=== PATIENT | male | born 1975 | race Caucasian/White ===

== ENCOUNTER 2019-07-19 10:25 | Observation (INO) | payer OTHER ==
[~2019-07-19] VITALS: Ht 195.6 cm; Wt 119.1 kg
--- NOTE | 2019-07-19 10:46 | NUR ---
PATIENT IS QU[employer] AND STARTED TO HAVE PAIN IN RIGHT SIDE OF FACE WITH RIGHT EYE TWITCHING AT APPROX 2200 LAST NIA. STATES THAT HE IS HAVING FACIAL AND NECK PAINS AND NOT FEELING HIMSELF, WITH NERVOUSNESS AND CONFUSION. DIARRHEA AND NAUSEATED AT PRESENT. WENT TO URGENT CARE THIS MORNING, BUT COULD NOT BE SEEN, SO HE WALKED HERE.
--- NOTE | 2019-07-19 10:53 | NUR ---
ACCUCHECK BG 234 AT PRESENT.
[2019-07-19 13:19] LABS: BASOPHILS % (AUTO) 0.6 % (0-1); EOSINOPHILS # (AUTO) 0.1 X10'3 (0-0.9); EOSINOPHILS % (AUTO) 1.3 % (0-6); HEMATOCRIT 45.4 % (42.0-52.0); HEMOGLOBIN 15.6 g/dl (14.0-17.9); LYMPHOCYTES # (AUTO) 2.5 X10'3 (1.1-4.8); MEAN CORPUSCULAR HEMOGLOBIN 31.1 PG (27.0-31.0); MEAN CORPUSCULAR HGB CONC 34.3 g/dL (33.0-36.5); MEAN CORPUSCULAR VOLUME 90.5 FL (78-98); MEAN PLATELET VOLUME 9.6 FL (7.4-10.4); MONOCYTES # (AUTO) 0.6 X10'3 (0-0.9); MONOCYTES % (AUTO) 8.3 % (2-12); NEUTROPHILS # (AUTO) 3.7 X10'3 (1.8-7.7); NEUTROPHILS % (AUTO) 53.8 % (42-75); PLATELET COUNT 234 X10'3 (140-440); RED BLOOD COUNT 5.01 X10'6 (4.70-6.10); RED CELL DISTRIBUTION WIDTH 13.1 % (11.5-14.5)
[2019-07-19 13:28] LABS: PARTIAL THROMBOPLASTIN TIME 25 SECONDS (22-32)
[2019-07-19 13:33] LABS: ALANINE AMINOTRANSFERASE 51 U/L (12-78); ALBUMIN 3.9 G/DL (3.4-5.0); ALBUMIN/GLOBULIN RATIO 1.1 (1.1-1.5); ALKALINE PHOSPHATASE 122 IU/L (46-116); ANION GAP 9 (8-16); ASPARTATE AMINO TRANSFERASE 23 U/L (10-37); BILIRUBIN,TOTAL 0.7 MG/DL (0.1-1.0); BLOOD UREA NITROGEN 10 MG/DL (7-18); BUN/CREATININE RATIO 10.3 (5.4-32.0); CALCIUM 9.1 MG/DL (8.5-10.1); CHLORIDE 105 MMOL/L (99-107); CREATININE 0.97 MG/DL (0.60-1.10); GLUCOSE 245 MG/DL (70-104); POTASSIUM 3.6 MMOL/L (3.5-5.1); SODIUM 142 MMOL/L (135-145); TOTAL CARBON DIOXIDE 28.3 MMOL/L (24-32); TOTAL PROTEIN 7.4 G/DL (6.4-8.2); eGFR 84 ML/MIN
[2019-07-19 13:36] LABS: CLARITY,URINE CLEAR (Clear); COLOR,URINE YELLOW (Yellow); GLUCOSE, URINE >=1000 mg/dl (Neg); KETONES,URINE NEGATIVE (Neg); LEUKOCYTE ESTERASE ,URINE NEGATIVE (Neg); NITRITES, URINE NEGATIVE (Neg); OCCULT BLOOD,URINE NEGATIVE (Neg); PROTEIN,URINE NEGATIVE (Neg); UROBILINOGEN,URINE >=8.0 E.U/dL (0.2-1.0)
[2019-07-19 13:39] LABS: UA COLLECTION TYPE CLN CATCH MIDSTREAM
[2019-07-19 13:43] LABS: RBC,URINE 0-2 /HPF (0-2); WBC,URINE 0-4 /HPF (0-4)
[2019-07-19 13:44] LABS: BACTERIA,URINE NONE SEEN /HPF (Neg); MUCUS STRANDS FEW /LPF (Neg); SQUAMOUS EPITHELIAL CELL,UR FEW /LPF (FEW)
[2019-07-19] MEDS ORDERED: normal saline 1000ml 1,000 ML IV ONE (14:00)
[2019-07-19] MEDS ORDERED: ketorolac tromethamine 15mg/ml inj. IV ONE (16:10)
[2019-07-19] MEDS ORDERED: potassium CL 10mEq/100ml bag 100 ML IV PRN ×2 (16:15)
[2019-07-19] MEDS ORDERED: acetaminophen 325mg tablet PO PRN ×2 (16:15)
[2019-07-19] MEDS ORDERED: potassium Cl 20 mEq SR tablet PO PRN ×2 (16:15)
[2019-07-19] MEDS ORDERED: mag hydrox/Alum hydrox/simeth 30ml oral suspension PO PRN (16:15)
[2019-07-19] MEDS ORDERED: ondansetron/PF 4mg/2ml inj IV PRN (16:15)
[2019-07-19] MEDS ORDERED: magnesium hydroxide 30ml (MOM) UD suspension PO PRN (16:15)
[2019-07-19] MEDS ORDERED: magnesium 4gm in 100ml NS 100 ML IV PRN (16:15)
[2019-07-19] MEDS ORDERED: magnesium Cl slow-release 64mg tablet PO PRN (16:15)
[2019-07-19] MEDS ORDERED: magnesium 2GM in 50ml NS 50 ML IV PRN (16:15)
[2019-07-19] MEDS ORDERED: aspirin 325mg tablet PO ONE (16:15)
[2019-07-19] MEDS ORDERED: LORazepam 1 MG tablet PO PRN (16:20)
[2019-07-19] MEDS: atorvastatin 20mg tablet PO SCH (16:25)
[2019-07-19 16:36] LABS: URINE AMPHETAMINE SCREEN NEGATIVE (Neg); URINE BARBITUATE SCREEN NEGATIVE (Neg); URINE BENZODIAZEPINES SCREEN NEGATIVE (Neg); URINE CANNABINOID SCREEN NEGATIVE (Neg); URINE COCAINE SCREEN NEGATIVE (Neg); URINE METHADONE SCREEN NEGATIVE (Neg); URINE OPIATE SCREEN NEGATIVE (Neg); URINE PHENCYCLIDINE SCREEN NEGATIVE (Neg)
--- NOTE | 2019-07-19 16:37 | NUR ---
Attempted to phone report, Charge nurse reports she has not assigned the patient yet but to phone back shortly to give report.
[2019-07-19] MEDS: normal saline 1000ml 1,000 ML IV SCH ×2 (16:49→19:37)
--- NOTE | 2019-07-19 17:02 | NUR ---
MRI screening completed and sent to MRI.
[2019-07-19] MEDS ORDERED: PIOG30TA71 PO (17:45)
[2019-07-19] MEDS ORDERED: GLIP-20 PO (17:45)
[2019-07-19] MEDS ORDERED: PARO40TA4 PO (17:45)
[2019-07-19] MEDS ORDERED: LISI-600 PO (17:45)
[2019-07-19] MEDS ORDERED: MAGN400C PO (17:45)
[2019-07-19] MEDS ORDERED: METF500T20 PO (17:45)
[2019-07-19] MEDS ORDERED: OMEP20CA11 PO (17:45)
[2019-07-19] MEDS ORDERED: ATOR40TA72 (17:45)
--- NOTE | 2019-07-19 17:48 | NUR ---
PATIENT READY FOR TRANSFER TO INPATIENT UNIT. WATCH ENGINE OPERATOR HERE TO TAKE PATIENT FOR SCAN. WATCH ENGINE OPERATOR WILL BE TAKING PATIENT TO INPATIENT ROOM ASSIGNMENT (2656M) WHEN SCAN IS COMPLETED. MALLORY ON [facility]THO NEURO UNIT INFORMED OF THIS AND DELAY IN TIME FOR PATIENT TO ARRIVE ON THE UNIT.
[2019-07-19 18:00] VITALS: BP 141/70
[2019-07-19] MEDS ORDERED: PIOGLITAZONE PO SCH (18:20)
[2019-07-19 18:55] VITALS: BP 127/77
--- NOTE | 2019-07-19 19:49 | NUR ---
PT ARRIVED FROM MRI VIA WHEELCHAIR. PATIENT IS RESTING COMFORTABLY SITTING UP IN BED EATING DINNER, VITAL SIGNS STABLE, STOKE ASSESSMENT COMPLETED NO DEFICITS. BG 155.
[2019-07-19] MEDS ORDERED: temazepam 15mg capsule PO PRN (21:00)
[2019-07-19 22:00] VITALS: BP_SYST 124; BP_SYST 132; BP_DIAS 77; BP_DIAS 79
[2019-07-19] MEDS ORDERED: glucagon, human recombinant 1mg kit SUBCUT PRN (22:20)
[2019-07-19] MEDS ORDERED: dextrose 50%-water 50ml dispensing syringe IV PRN ×2 (22:20)
[2019-07-19] MEDS ORDERED: MESSAGE TO PHARMACY PO ONE (22:20)
[2019-07-19] MEDS ORDERED: dextrose ORAL solution 15 GM/59 ML bottle PO PRN ×2 (22:20)
[2019-07-19] MEDS ORDERED: insulin Lispro (HumaLOG) vial - multi-dose SQ SCH (22:20)
[2019-07-20 02:00] VITALS: BP 107/73
[2019-07-20] MEDS: normal saline 1000ml 1,000 ML IV SCH (04:56)
[2019-07-20 05:39] LABS: BASOPHILS % (AUTO) 0.8 % (0-1); EOSINOPHILS # (AUTO) 0.2 X10'3 (0-0.9); HEMATOCRIT 41.7 % (42.0-52.0); HEMOGLOBIN 14.6 g/dl (14.0-17.9); LYMPHOCYTES # (AUTO) 2.3 X10'3 (1.1-4.8); LYMPHOCYTES % (AUTO) 41.1 % (21-51); MEAN CORPUSCULAR HEMOGLOBIN 31.4 PG (27.0-31.0); MEAN CORPUSCULAR VOLUME 89.8 FL (78-98); MEAN PLATELET VOLUME 8.7 FL (7.4-10.4); MONOCYTES # (AUTO) 0.5 X10'3 (0-0.9); MONOCYTES % (AUTO) 9.6 % (2-12); NEUTROPHILS # (AUTO) 2.5 X10'3 (1.8-7.7); NEUTROPHILS % (AUTO) 45.5 % (42-75); PLATELET COUNT 193 X10'3 (140-440); RED BLOOD COUNT 4.64 X10'6 (4.70-6.10); WHITE BLOOD COUNT 5.5 X10'3 (4.5-11.0)
[2019-07-20 06:03] LABS: ALANINE AMINOTRANSFERASE 48 U/L (12-78); ALBUMIN 3.3 G/DL (3.4-5.0); ALBUMIN/GLOBULIN RATIO 1.1 (1.1-1.5); ALKALINE PHOSPHATASE 98 IU/L (46-116); ANION GAP 8 (8-16); ASPARTATE AMINO TRANSFERASE 29 U/L (10-37); BILIRUBIN,TOTAL 0.8 MG/DL (0.1-1.0); BLOOD UREA NITROGEN 13 MG/DL (7-18); BUN/CREATININE RATIO 17.8 (5.4-32.0); CALCIUM 8.5 MG/DL (8.5-10.1); CHLORIDE 110 MMOL/L (99-107); CHOL/HDL RATIO 3.7 (0.00-4.99); CHOLESTEROL 108 MG/DL (0-200); CREATININE 0.73 MG/DL (0.60-1.10); GLUCOSE 163 MG/DL (70-104); HDL CHOLESTEROL 29 MG/DL (35-60); LDL CHOLESTEROL 69 MG/DL (50-100); MAGNESIUM 1.7 MG/DL (1.5-2.4); PHOSPHORUS 3.8 MG/DL (2.3-4.5); POTASSIUM 3.3 MMOL/L (3.5-5.1); SODIUM 144 MMOL/L (135-145); TOTAL PROTEIN 6.4 G/DL (6.4-8.2); TRIGLYCERIDES 69 MG/DL (20-135); eGFR > 90 ML/MIN
--- NOTE | 2019-07-20 06:10 | NUR ---
REPORT GIVEN TO CHELY HUGHES.
[2019-07-20] MEDS ORDERED: pantoprazole 40mg Tablet.DR PO SCH (07:30)
[2019-07-20] MEDS ORDERED: K and/or MAG REPLACEMENT MC SCH (08:00)
[2019-07-20] MEDS ORDERED: PARoxetine 20mg tablet PO SCH (08:00)
[2019-07-20] MEDS ORDERED: aspirin 325mg tablet PO SCH (08:30)
[2019-07-20] MEDS: atorvastatin 20mg tablet PO SCH (09:16)
[2019-07-20 09:30] VITALS: BP_SYST 123; BP_SYST 126; BP_DIAS 72; BP_DIAS 82; BP_DIAS 84
[2019-07-20 10:00] VITALS: BP 123/72
--- NOTE | 2019-07-20 14:36 | NUR ---
pt discharged and encouraged to rest. Education given on stress management. IV removed. Discharge instructions reviewed and all questions answered. pt escorted downstairs. [employer] called for pt.
--- NOTE | 2019-07-20 15:23 | NUR ---
DM Consult: A1C 9.0. RD provided pt w/ written/verbal DM ed and RD contact information. 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 Addendum: 07/20/19 at [address] Amended: Links added.
[2019-07-20] MEDS ORDERED: insulin glargine (Lantus) pen - multi-dose SQ SCH (21:00)
== END 2019-07-20 14:39 | disposition home or self-care (01) ==
LOC: ER 10:27 → ORTHO 4S 18:08
PROVIDERS: ADMIT Family Medicine; ATTEND Family Medicine
DX: R41.82 Altered mental status, unspecified (principal); E11.65 Type 2 diabetes mellitus with hyperglycemia; I10 Essential (primary) hypertension; S16.1XXA Strain of muscle, fascia and tendon at neck level, initial encounter; E78.5 Hyperlipidemia, unspecified; F41.1 Generalized anxiety disorder; F41.0 Panic disorder [episodic paroxysmal anxiety]; F32.9 Major depressive disorder, single episode, unspecified; E87.6 Hypokalemia; G45.9 Transient cerebral ischemic attack, unspecified; Z87.09 Personal history of other diseases of the respiratory system; Z90.49 Acquired absence of other specified parts of digestive tract; Z72.820 Sleep deprivation; Z79.84 Long term (current) use of oral hypoglycemic drugs; Z79.899 Other long term (current) drug therapy; Z88.0 Allergy status to penicillin; X58.XXXA Exposure to other specified factors, initial encounter; Y92.89 Other specified places as the place of occurrence of the external cause
CPT/HCPCS: 36415; 70450; 70544; 70551; 71045; 80053; 80061; 80305; 81001; 82948; 83036; 83735; 84100; 85025; 85610; 85730; 87081; 93005; 93306; 93880; 96361; 96372; 96374; 99284; G0378; J1815; J1885; J7030; 99291